=== PATIENT | female | born 1950 | race Caucasian/White ===

== ENCOUNTER → 2017-04-21 | Outpatient (CLI) | payer BC ==
[~2017-04-21] MED LIST: BENICAR HCT 20-1 TA1 PO; BIOTENE ORALBAL45 ML MM; CALCIUM + D 6001 TA1 PO; CELEXA20 MG PO; ENBREL50 MG/M1 SQ; FISH OIL 1,2001 CAP PO; HIGH POTENCY B1 TAB PO; IRON1 TAB PO; LORTAB 7.5-5001 TAB PO; OMEPRAZOLE40 M1 PO; OMEPRAZOLE40 MG PO; PHENERGAN25 M1 DOB; SYMBICORT 16010.2 GM IH; TUDORZA PRESS400 MCG IH
--- NOTE | ~2017-04-21 | CR61 ---
[facility] A Service of [facility] & [facility] RADIOLOGY TEXT RESULTS PATIENT: DENNIS BLANCAS LOCATION: [facility] : 54 UNIT #: [id number] AGE: [address]: Anitha Sarkar MD SEX: F ORDER DR: [id number] [facility] [address] [place], [place] [address] [id number] O MR#: [id number] Acc #: [id number] NAME: DENNIS BLANCAS : 1950 SEX: F STUDY DATE/TIME: 04/21/2017 10:07 UNIT: [facility] ROOM: STUDY DESCRIPTION: CR Cervical Spine Min 5 Views Attending Physician: Anitha Sarkar M.D. Referring Physician: Anitha Sarkar M.D. Ordering Physician: Anitha Sarkar M.D. Primary Care Physician: Hunter Rojo D.O. MEDICAL IMAGING REPORT This report is preliminary unless electronic signature is present EXAM Cervical spine series 5 views 04/21/2017 CLINICAL HISTORY History of neck pain radiating to left arm for a couple of months. FINDINGS There is normal alignment. There is discogenic degenerative change and osteopenia but no acute bony abnormality. Dictated by... Lavell Galdamez M.D. THIS IS AN ELECTRONICALLY VERIFIED REPORT Lavell Galdamez M.D. at 04/27/2017 10:38 AM SHILOH/doug TD: 04/21/2017 16:19 JOB #: [id number] MEDICAL IMAGING REPORT Page 1 of 1 COPY
--- NOTE | ~2017-04-21 | CR91 ---
[facility] A Service of [facility] & [facility] RADIOLOGY TEXT RESULTS PATIENT: DENNIS BLANCAS LOCATION: [facility] : 54 UNIT #: [id number] AGE: [address]: Anitha Sarkar MD SEX: F ORDER DR: [id number] [facility] [address] [place], [place] [address] [id number] O MR#: [id number] Acc #: [id number] NAME: DENNIS BLANCAS : 1950 SEX: F STUDY DATE/TIME: 04/21/2017 10:07 UNIT: [facility] ROOM: STUDY DESCRIPTION: CR Elbow 2 View Rt Attending Physician: Anitha Sarkar M.D. Referring Physician: Anitha Sarkar M.D. Ordering Physician: Anitha Sarkar M.D. Primary Care Physician: Hunter Rojo D.O. MEDICAL IMAGING REPORT This report is preliminary unless electronic signature is present EXAM Right elbow, 3 views HISTORY Elbow pain for 2 months. No injury. FINDINGS Three views of the right elbow demonstrate normal bone alignment. No fracture, joint space narrowing or dislocation. No effusion. IMPRESSION Negative. Dictated by... Dorian Godoy M.D. THIS IS AN ELECTRONICALLY VERIFIED REPORT Dorian Godoy M.D. at 04/22/2017 11:19 PM DFL/psc TD: 04/21/2017 20:28 JOB #: [id number] MEDICAL IMAGING REPORT Page 1 of 1 COPY
== END | disposition home or self-care (01) ==
LOC: CRAD 09:38
DX: M25.521 Pain in right elbow (principal)
CPT/HCPCS: 72050; 73070

== ENCOUNTER → 2017-06-01 | Outpatient (CLI) | payer BC ==
--- NOTE | ~2017-06-01 | MY29 ---
[facility] A Service of [facility] / [facility] RADIOLOGY TEXT RESULTS PATIENT: DENNIS BLANCAS LOCATION: [facility] : 54 UNIT #: [id number] AGE: [address]: Anitha Sarkar MD SEX: F ORDER DR: [id number] [facility] [address]. [place], [place] [address] [id number] O MR#: [id number] Acc #: [id number] NAME: DENNIS BLANCAS : 1950 SEX: F STUDY DATE/TIME: 06/01/2017 16:42 UNIT: [facility] ROOM: STUDY DESCRIPTION: MY ARACELIS SCREENING W/ CAD BILAT Attending Physician: Anitha Sarkar M.D. Ordering Physician: Anitha Sarkar M.D. Primary Care Physician: Anitha Sarkar M.D. MEDICAL IMAGING REPORT This report is preliminary unless electronic signature is present EXAMINATION Bilateral digital screening mammogram CAD. DATE 06/01/2017 HISTORY Family history of breast cancer in her sister at the age 72. No personal history of breast cancer or current complaints. COMPARISON Bilateral screening mammogram, 05/26/2016, 02/18/2015 and 02/07/2014 performed at [facility]. This study was originally performed on 06/01/2017 and was submitted for interpretation today, 06/10/2017, after the arrival of outside comparisons. FINDINGS CC and MLO views were obtained of each breast utilizing digital technique and reviewed with an FDA-approved CAD device. Scattered fibroglandular densities are present bilaterally. There is a fibronodular pattern within each breast, greatest in the upper outer left breast. No suspicious nodules are identified. No architectural distortion or suspicious cluster of microcalcification is seen. IMPRESSION 1. BIRADS 2. Benign findings. Routine bilateral screening mammogram is recommended in year. Patients over the age of 40 are entered into a reminder system with target due date for the next mammogram. A result letter will also be sent to the patient. [facility] A Service of [facility] / [facility] RADIOLOGY TEXT RESULTS PATIENT: DENNIS BLANCAS LOCATION: [facility] : 54 UNIT #: [id number] AGE: [address]: Anitha Sarkar MD SEX: F ORDER DR: BRENNAADS: 2 Benign finding. Dictated by... Kecia Herr M.D. THIS IS AN ELECTRONICALLY VERIFIED REPORT Kecia Herr M.D. at 06/15/2017 3:26 PM [facility]/codey TD: 06/11/2017 09:16 JOB #: [id number] MEDICAL IMAGING REPORT Page 1 of 1 COPY
--- NOTE | ~2017-06-01 | BD1 ---
[facility] A Service of [facility] & [facility] RADIOLOGY TEXT RESULTS PATIENT: DENNIS BLANCAS LOCATION: [facility] : 54 UNIT #: [id number] AGE: [address]: Anitha Sarkar MD SEX: F ORDER DR: [id number] [facility] [address] [place], [place] [address] [id number] O MR#: [id number] Acc #: [id number] NAME: DENNIS BLANCAS : 1950 SEX: F STUDY DATE/TIME: 06/01/2017 16:46 UNIT: [facility] ROOM: STUDY DESCRIPTION: BD Dexa Bone Dens 1+ Site Attending Physician: Anitha Sarkar M.D. Ordering Physician: Anitha Sarkar M.D. Primary Care Physician: Anitha Sarkar M.D. MEDICAL IMAGING REPORT This report is preliminary unless electronic signature is present EXAM DXA scan, 06/01/2017. HISTORY Status post menopause with no hormone replacement therapy. Osteopenia. Hysterectomy. Family history of breast carcinoma in sister. Smoking history for 40 years. Hypertension with blood pressure medication for 7 years. Back surgery and right hip surgery. FINDINGS Bone mineral density in the left femoral neck was 0.675 g/cm2 which is 1.6 standard deviations below the mean when compared to the young adult reference population which is characteristic of osteopenia. This is 0.1 standard deviations below the mean when compared to the age-matched population. Bone mineral density in the left forearm was 0.484 g/cm2 which is 1.8 standard deviations below the mean when compared to the young adult reference population which is characteristic of osteopenia. This is 0.2 standard deviations below the mean when compared to the age-matched population. IMPRESSION Bone mineral density in the left hip within the range of normal and within the left forearm characteristic of osteopenia. Dictated by... Renato Monte M.D. THIS IS AN ELECTRONICALLY VERIFIED REPORT Renato Monte M.D. at 06/02/2017 7:29 AM HOLLY/mireya TD: 06/01/2017 22:17 [facility] A Service of [facility] & [facility] RADIOLOGY TEXT RESULTS PATIENT: DENNIS BLANCAS LOCATION: [facility] #: [id number] : 54 UNIT #: [id number] AGE: [address]: Anitha Sarkar MD SEX: F ORDER DR: JOB #: [id number] MEDICAL IMAGING REPORT Page 1 of 1 COPY
== END | disposition home or self-care (01) ==
LOC: CWCC 16:20
DX: Z12.31 Encounter for screening mammogram for malignant neoplasm of breast (principal); Z80.3 Family history of malignant neoplasm of breast; M85.80 Other specified disorders of bone density and structure, unspecified site; M85.88 Other specified disorders of bone density and structure, other site
CPT/HCPCS: 77080; G0202